=== PATIENT | male | born 1990 | race Caucasian/White ===

== ENCOUNTER 2018-12-22 01:35 | Emergency (ER) | payer OTHER ==
[~2018-12-22] VITALS: Ht 182.9 cm; Wt 104.5 kg
[~2018-12-22 01:35] MED LIST: NOCURR
[2018-12-22] MEDS ORDERED: BACITRACIN 0.9 GM PACKET OINTMENT TP ONE (02:15)
[2018-12-22] MEDS ORDERED: IBUPROFEN 600 MG TABLET PO ONE (02:15)
[2018-12-22] MEDS ORDERED: HYDROCODONE/ACETAMINOPHEN 5-325 MG TABLET PO ONE (02:15)
[2018-12-22] MEDS ORDERED: BACITRACIN 28.4 GM OINTMENT TP ONE (02:30)
[2018-12-22 03:09] VITALS: BP 139/86
== END 2018-12-22 03:10 | disposition home or self-care (01) ==
LOC: EMS 01:35
DX: T23.251A Burn of second degree of right palm, initial encounter (principal); T23.252A Burn of second degree of left palm, initial encounter; F17.210 Nicotine dependence, cigarettes, uncomplicated; X19.XXXA Contact with other heat and hot substances, initial encounter; Y93.89 Activity, other specified; Y92.89 Other specified places as the place of occurrence of the external cause; Y99.8 Other external cause status
CPT/HCPCS: 16020

== ENCOUNTER 2024-03-23 09:42 | Emergency (ER) | payer OTHER ==
[~2024-03-23] VITALS: Ht 180.3 cm; Wt 100.0 kg
[2024-03-23 09:55] VITALS: BP 140/70; PULSE 92; RESP 16; TEMP 98.6
[2024-03-23] MEDS: AMOX TR/POT CLAV 875 MG/125 MG TABLET PO ONE (10:39)
[2024-03-23] MEDS: PERTUSS(ACELL),DIPH,TET/PF 0.5 ML SYRINGE [ADULT] IM. ONE (10:40)
[2024-03-23] MEDS: OxyCODONE HCL/ACETAMINOPHEN 5-325 MG TABLET PO ONE (10:53)
[2024-03-23] MEDS ORDERED: AMOX-457 PO (11:12)
[2024-03-23] MEDS ORDERED: PERCT PO (11:40)
== END 2024-03-23 11:49 | disposition home or self-care (01) ==
LOC: EMS 09:45
DX: S61.210A Laceration without foreign body of right index finger without damage to nail, initial encounter (principal); S61.212A Laceration without foreign body of right middle finger without damage to nail, initial encounter; Z87.891 Personal history of nicotine dependence; W54.0XXA Bitten by dog, initial encounter; Y93.89 Activity, other specified; Y92.89 Other specified places as the place of occurrence of the external cause; Y99.8 Other external cause status
CPT/HCPCS: 90471; 90715; 99283

== ENCOUNTER 2024-03-25 09:50 | Emergency (ER) | payer OTHER ==
[~2024-03-25] VITALS: Ht 180.3 cm; Wt 100.0 kg
[~2024-03-25 09:50] MED LIST changes: +AMOX-457 PO; -NOCURR; +PERCT PO
[2024-03-25 09:57] VITALS: TEMP 98.2
[2024-03-25 10:18] VITALS: BP 122/79; PULSE 78; RESP 18
[2024-03-25] MEDS ORDERED: ONDA-104 PO (10:20)
== END 2024-03-25 10:29 | disposition home or self-care (01) ==
LOC: EMS 09:50
DX: Z48.00 Encounter for change or removal of nonsurgical wound dressing (principal); F17.210 Nicotine dependence, cigarettes, uncomplicated
CPT/HCPCS: 99283; Z7502